=== PATIENT | male | born 1950 | race Caucasian/White ===

== ENCOUNTER 2017-08-07 07:49 | Day surgery (SDC) | payer MEDICARE, BC ==
[~2017-08-07] VITALS: Ht 182.9 cm; Wt 117.0 kg
[~2017-08-07 07:49] MED LIST: ASPI81CH PO; Hair, Skin & N1 EACH PO; LOSA50 PO; ZOLP10 PO
== END 2017-08-07 22:47 | disposition home or self-care (01) ==
LOC: ORSCMMR 07:49
PROVIDERS: Internal Medicine Gastroenterology
PROC: 0DBH8ZX Excision of Cecum, Via Natural or Artificial Opening Endoscopic, Diagnostic (ICD-10-PCS; principal; 2017-08-07 09:00)
DX: Z12.11 Encounter for screening for malignant neoplasm of colon (principal); D12.0 Benign neoplasm of cecum; K64.8 Other hemorrhoids; Z86.010 Personal history of colon polyps; I10 Essential (primary) hypertension; Z79.82 Long term (current) use of aspirin; Z79.899 Other long term (current) drug therapy
CPT/HCPCS: 88305; J7120